=== PATIENT | female | born 1955 ===

== ENCOUNTER 2016-10-05 07:25 | Day surgery (SDC) | payer OTHER ==
[~2016-10-05] VITALS: Ht 167.6 cm; Wt 77.1 kg
[2016-10-05] VITALS (14 sets, daily range): BP systolic 98–137; BP diastolic 56–74
[~2016-10-05 07:25] MED LIST: ceFAZolin sod 1 GM in NS 55 ML IVPB ONE
[2016-10-05] MEDS ORDERED: NKM (08:06)
[2016-10-05] MEDS ORDERED: Bupivacaine w/Epi 0.5% 30ml Vial INJ ONE (09:22)
[2016-10-05] MEDS ORDERED: Propofol 10mg/ml 20ml IV ONE (09:22)
--- NOTE | 2016-10-05 09:49 | Pre-Procedure Note/Attestation ---
Pre-Procedure Note/Attestation Complete Prior to Procedure Planned Procedure: left Procedure Narrative: Arthroscopy Intra-articular Surgery Left Knee Indications for Procedure Pre-Operative Diagnosis: Torn Medial Meniscus Left Knee Attestation I attest that I discussed the nature of the procedure; its benefits; risks and complications; and alternatives (and the risks and benefits of such alternatives ), prior to the procedure, with the patient (or the patient's legal life assurance representative). I attest that, if there was a reasonable possibility of needing a blood transfusion, the patient (or the patient's legal life assurance representative) was given the [facility] standardized written summary, pursuant to the [place] Blood Safety Act ([place] Health and Safety Code # 1645, as amended). I attest that I re-evaluated the patient just prior to the surgery and that there has been no change in the patient's H&P, except as documented below: PENNY CIFUENTES October 05, 2016 09:49
[2016-10-05] MEDS ORDERED: Metoclopramide 10mg/2ml Inj ONE (10:00)
[2016-10-05] MEDS ORDERED: LR 1000ml ONE (10:00)
[2016-10-05] MEDS ORDERED: fentaNYL 100 mcg/2 mL IV ONE (10:00)
[2016-10-05] MEDS ORDERED: Midazolam 2mg/2ml Inj ONE (10:00)
[2016-10-05] MEDS ORDERED: Sterile Water Irrig 1000ml IRRIG ONE (10:00)
[2016-10-05] MEDS ORDERED: Lidocaine 1% MPF 10mg/ml 5ml ONE (10:00)
[2016-10-05] MEDS ORDERED: NS Irrig 4000ml IRRIG ONE ×2 (10:00→10:45)
[2016-10-05] MEDS ORDERED: Hydromorphone 0.5mg/0.5ml inj IVP PRN (10:15)
[2016-10-05] MEDS ORDERED: Metoclopramide 10mg/2ml Inj IVP PRN (10:15)
[2016-10-05] MEDS ORDERED: fentaNYL 100 mcg/2 mL IV PRN (10:15)
--- NOTE | 2016-10-05 11:52 | Immediate Post-Op Evaluation ---
Immediate Post-Op Evalulation Immediate Post-Op Evalulation Procedure: left knee arthroscopy Date of Evaluation: October 05, 2016 Time of Evaluation: 11:51 IV Fluids: 500 Blood Pressure Systolic: 137 Blood Pressure Diastolic: 71 Pulse Rate: 60 Respiratory Rate: 14 O2 Sat by Pulse Oximetry: 100 Temperature (Fahrenheit): 97.6 Nausea: No Vomiting: No Complications none Patient Status: awake, reacts, patent Hydration Status: adequate Drug: ancef Given Within 1 Hr of Incision: Yes Time Given: 11:30 ZOE MANNING CRNA October 05, 2016 11:52
--- NOTE | 2016-10-05 11:55 | Anethesia Preoperative Eval ---
Anesthesia Pre-op PMH/ROS General Date of Evaluation: October 05, 2016 Time of Evaluation: 10:35 Anesthesiologist: maria ASA Score: ASA 1 Mallampati Score Class I : Soft palate, uvula, fauces, pillars visible Class II: Soft palate, uvula, fauces visible Class III: Soft palate, base of uvula visible Class IV: Only hard plate visible Mallampati Classification: Class II Surgeon: jef Diagnosis: meniscus tear Surgical Procedure: left knee arthroscopy Anesthesia History: none Family History: no anesthesia problems Allergies: Coded Allergies: No Known Allergies (Unverified , 10/04/16) Medications: see eMAR Past Medical History Cardiovascular: Denies: CAD, HTN, SD, arrhythmia, other, valve dz Pulmonary: Denies: COPD, A[place]STA, asthma, other Gastrointestinal/Genitourinary: Denies: CRI, ESRD, GERD, other Neurologic/Psychiatric: Denies: CVA, TIA, dementia, depression/anxiety, other Endocrine: Denies: DM, hypothyroidism, other, steroids HEENT: Denies: [place] (L), [place] (R), cataract (L), cataract (R), glaucoma, other Hematology/Immune: Denies: DVT, anemia, bleeding disorder, other Musculoskeletal/Integumentary: Denies: DDD, DJD, OA, RA, edema, other PSxH Narrative: none Anesthesia Pre-op Phys. Exam Physician Exam Last Vital Signs Date Time Temp Pulse Resp B/P Pulse Ox O2 Delivery O2 Flow Rate FiO2 10/05/16 08:02 97.7 71 18 115/59 97 Room Air Constitutional: NAD Neurologic: CN 2-12 intact Cardiovascular: RRR Respiratory: CTA Gastrointestinal: S/NT/ND Airway Exam Mallampati Classification 2 Mallampati Score: Class I MO: full ROM: full Dentures: no lower, no upper Anesthesia Pre-op A/P Risk Assessment & Plan Plan: general Status Change Before Surgery: No Pre-Antibiotics Drug: ancef Given Within 1 Hr of Incision: Yes Time Given: 10:30 ZOE MANNING CRNA October 05, 2016 11:55
--- NOTE | 2016-10-05 11:58 | Brief Operative Note ---
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
--- NOTE | 2016-10-05 13:56 | 48 Hour Post Anesthesia Eval ---
Post Anesthesia Evaluation Procedure: left knee arthroscopy Date of Evaluation: October 05, 2016 Time of Evaluation: 13:56 Blood Pressure Systolic: 105 0: 65 Pulse Rate: 85 Respiratory Rate: 14 O2 Sat by Pulse Oximetry: 100 Airway: patent Nausea: No Vomiting: No Hydration Status: adequate Mental Status/LOC: patient returned to baseline Post-Anesthesia Complications: none Follow-up care needed: N/A ZOE MANNING CRNA October 05, 2016 13:56
[2016-10-05] MEDS ORDERED: Norco 5mg/325mg tab ORAL PRN (15:01)
--- NOTE | 2016-10-06 04:48 | Operative Note - Dictated ---
DATE OF OPERATION: 10/05/2016 SURGEON: Aman Pedroza M.D. [facility] BAILIFF: None. ANESTHESIOLOGIST: Dr. Dumont PREOPERATIVE DIAGNOSIS: Torn medial meniscus left knee. POSTOPERATIVE DIAGNOSES: Multiplanar tear, posterior horn, medial meniscus, grade 3 to 4 chondromalacia, medial femoral condyle, grade 1 to 2 chondromalacia, and medial tibial plateau, left knee OPERATION PERFORMED: 1. Arthroscopy. 2. Arthroscopic partial medial meniscectomy. 3. Limited chondroplasty, medial femoral condyle, left knee. DESCRIPTION OF PROCEDURE: The patient was brought to the operating room and placed comfortably in the supine position on the operating table. After satisfactory induction of general endotracheal anesthesia, the tourniquet was placed at the proximal aspect of the left lower extremity. The extremity was then prepped and draped in the usual sterile fashion. Standard 1 cm vertical oblique arthroscopy portals were placed 1 cm medial and 1 cm lateral to the patellar tendon, 1 cm above the respective joint lines. A 60 mL of sterile irrigation introduced into the knee and the medial suprapatellar inflow cannula was introduced. The arthroscope was placed through the lateral portal. The patellofemoral examination revealed normal tracking with unremarkable retropatellar cartilage. There is no evidence of medial synovial plica or loose bodies. Examination of the medial compartment revealed grade 3 chondromalacic change management administrator great portion of the medial femoral condyle, with some eburnated bone (grade 4) change management administrator a small area just lateral to the weightbearing area of the medial femoral condyle. A multiplanar tear of the medial meniscus was noted at the mid zone of the posterior horn, with extension medially. Using a combination of straight and curved basket forceps, the torn portion of the medial meniscus was resected. Some degenerative changes noted within the of meniscus. Approximately, a 70% peripheral rim was left at the posterior horn with a smooth transition to the mid zone. The tourniquet was inflated to 220 mmHg of a small portion (7 minutes) of the meniscus resection. At the conclusion of the meniscus resection, the remaining meniscus was vigorously probed with no portion found to be loose or dislocatable into the joint. The compartment was then cleared of all meniscal debris using motorized shaver and suction. A minimal chondroplasty was then carried out of the medial femoral condyle of moderate amount of fibrillated loose cartilage. No attempt was made to debride deeply into the cartilage. The anterior and posterior cruciate ligaments were examined and were intact. The lateral tibial plateau, lateral femoral condyle, and lateral meniscus were without defect. No loose bodies were observed in the lateral gutter. The knee was thoroughly irrigated to remove any remaining meniscal debris. The tourniquet was deflated. The medial and lateral portals were closed with 3-0 nylon suture, as well as the medial inflow portal. A 10 mL of 0.5% Marcaine with epinephrine were instilled into the knee at the conclusion. A sterile Xeroform dressing and CAM stocking were applied at the conclusion of the procedure. Estimated blood loss was negligible. Sponge and needle counts at the conclusion were correct. The patient tolerated the procedure well and was returned to the recovery room in good condition. Aman Pedroza M.D. DR: Marycruz JOB#: [id number] CC:
== END 2016-10-05 16:45 | disposition home or self-care (01) ==
LOC: SUR 07:25
DX: S83.242A Other tear of medial meniscus, current injury, left knee, initial encounter (principal); M94.262 Chondromalacia, left knee; W18.30XA Fall on same level, unspecified, initial encounter; Y92.89 Other specified places as the place of occurrence of the external cause; Y99.0 Civilian activity done for income or pay
CPT/HCPCS: 29881; 97161; J0690; J1170; J2250; J2405; J2704; J2765; J3010; J7120; 94003; 94150